=== PATIENT | female | born 1940 | race Caucasian/White ===

== ENCOUNTER 2017-11-14 09:08 | Day surgery (SDC) | payer MEDICARE ==
[~2017-11-14] VITALS: Ht 160 cm; Wt 79.4 kg
[~2017-11-14 09:08] MED LIST: CIPRO500 MG PO; Flagyl500 MG PO; LISI5 PO; LORA1 PO; NAPR220; NIFE30ER PO; THYR60 PO
[2017-11-14] MEDS ORDERED: NIFE30ER PO (10:08)
== END 2017-11-14 12:12 | disposition home or self-care (01) ==
LOC: ORSCSDS 09:08
PROVIDERS: Orthopaedic Surgery
PROC: 01N50ZZ Release Median Nerve, Open Approach (ICD-10-PCS; principal; 2017-11-14 10:30)
DX: G56.01 Carpal tunnel syndrome, right upper limb (principal); I10 Essential (primary) hypertension; E66.9 Obesity, unspecified; Z68.31 Body mass index [BMI] 31.0-31.9, adult; Z79.899 Other long term (current) drug therapy
CPT/HCPCS: J1885; J2250; J3010; J7120

== ENCOUNTER 2018-06-21 23:26 | Emergency (ER) | payer MEDICARE ==
[~2018-06-21] VITALS: Ht 162.6 cm; Wt 79.4 kg
== END 2018-06-22 03:47 | disposition home or self-care (01) ==
LOC: ER 23:26
DX: R04.0 Epistaxis (principal); Z88.0 Allergy status to penicillin; Z88.8 Allergy status to other drugs, medicaments and biological substances; Z88.2 Allergy status to sulfonamides; Z79.899 Other long term (current) drug therapy; Z87.891 Personal history of nicotine dependence
CPT/HCPCS: 99283

== ENCOUNTER 2018-07-26 06:13 | Inpatient (IN) | payer MEDICARE ==
[~2018-07-26] VITALS: Ht 162.6 cm; Wt 82.2 kg
[~2018-07-26 06:13] MED LIST changes: +DULO30 PO; +Norco 5-325 Ta1 EACH PO
--- NOTE | 2018-07-26 07:25 | NUR ---
PATIENT GAVE PERMISSION FOR ME TO CARE FOR HER TODAY 07/26/18. History, Chart, Medications and Allergies reviewed before start of procedure.Patient confirms NPO status and agrees with scheduled surgery. Patient reports completing Chlorhexadine shower X2 prior to admission to hospital.Surgical site prepped with 2% Chlorhexidine cloth wipe. Lungs clear T/O to Auscultation.
--- NOTE | 2018-07-26 07:39 | NUR ---
STUDENT NURSE ASSISTING WITH PREOPERATIVE CARE. AGREE WITH HER CHARTING AND CARE.
--- NOTE | 2018-07-26 11:23 | NUR ---
BLADDER SCAN REVEALED 325 CCs. STRAIGHT CATH PRODUCED 300 CCs OUTPUT.
--- NOTE | 2018-07-26 17:54 | NUR ---
SHIFT SUMMARY PT WAS DROWSY POST OP. BECAME NAUSEATED DURING THERAPY, AROMATHERAPY TX RELIEVED NAUSEA UNTIL PT AMBULATED TO BATHROOM TO ATTEMPT TO VOID WHEN NAUSEA RETURNED. PT UNSUCCESSFUL TO VOID, STRAIGHT CATH COMPLETED. PT RESTING IN BED, DECLINES MEAL FOR DINNER. SIPS OF FLUIDS AT THIS TIME.
[2018-07-27 05:52] LABS: BASOPHILS ABSOLUTE AUTO 0.01 K/mm3 (0.00-0.23); BASOPHILS PERCENT AUTO 0 % (0-2); EOSINOPHILS ABSOLUTE AUTO 0.04 K/mm3 (0.00-0.68); EOSINOPHILS PERCENT AUTO 1 % (0-6); Hematocrit 33.7 % (33.0-51.0); Hemoglobin 10.7 g/dL (11.5-16.0); IMMATURE GRAN ABSOLUTE AUTO 0.02 K/mm3 (0.00-0.10); IMMATURE GRAN PERCENT AUTO 0 % (0-1); LYMPHOCYTES ABSOLUTE AUTO 0.64 K/mm3 (0.84-5.20); LYMPHOCYTES PERCENT AUTO 9 % (21-46); MONOCYTES ABSOLUTE AUTO 0.64 K/mm3 (0.16-1.47); MONOCYTES PERCENT AUTO 9 % (4-13); Mean Corpuscular HGB 28.2 pg (26.0-34.0); Mean Corpuscular HGB Conc 31.8 g/dL (31.5-36.5); Mean Corpuscular Volume 89 fL (80-100); Mean Platelet Volume 10.8 fL (9.1-12.4); NEUTROPHILS ABSOLUTE AUTO 6.03 K/mm3 (1.96-9.15); NEUTROPHILS PERCENT AUTO 82 % (41-73); Platelet Count 166 K/mm3 (150-400); RDW Coefficient Variation 14.6 % (11.7-14.2); RDW Standard Deviation 47.2 fL (35.1-46.3); White Blood Cell Count 7.38 K/mm3 (4.00-11.30)
[2018-07-27 06:13] LABS: Anion Gap 6 mmol/L (6-16); Blood Urea Nitrogen 14 mg/dL (8-24); Bun/Creatinine Ratio 20.8 (12.0-20.0); CO2, Blood 25 mmol/L (21-32); Calcium, Blood 8.2 mg/dL (8.5-10.1); Chloride, Blood 106 mmol/L (98-108); Creatinine, Blood 0.67 mg/dL (0.40-1.00); Glomerular Filtration Rate >60 (60-); Glucose, Blood 110 mg/dL (70-99); Potassium, Blood 4.3 mmol/L (3.5-5.5); Sodium, Blood 137 mmol/L (136-145)
--- NOTE | 2018-07-27 07:38 | NUR ---
SHIFT SUMMARY PT IS POD 1 RIGHT SHAE AND GLUTEAL MEDIUS REPAIR. SHE WAS NAUSEATED LAST NIGHT AND REQUIRED MEDICATION AND JUST TOOK SIPS OF PEPSI OVERNIGHT. PT IS TTWB TO RIGHT SIDE AND ABLE TO FOLLOW PRECAUTIONS. HER BIGGEST CONCERN IS SHE WAS UNABLE TO VOID MORE THAN 75MLS AND HER BLADDER SCAN THIS MORNING WAS 472MLS. SHE HAS HX OF A PROLAPSED BLADDER AND DIFFICULTY VOIDING AFTER SURGERY WELL. PT HAS BEEN PAINFUL WITH MOVEMENT WELL, MEDICATED PER EMAR. REPORT PASSED TO ONCOMING SHIFT.
--- NOTE | 2018-07-27 07:50 | NUR ---
PT BLADDER SCANNED THIS AM ASSISTED TO BATHROOM TO VOID UNABLE TO GO PT IN CHAIR WILL PLACE CATH PT STATED THAT LAST SURG SHE NEEDED TO GO HOME WITH A CATH
--- NOTE | 2018-07-27 08:45 | NUR ---
[facility] CATH PLACED WILL CALL DR PAIGE
--- NOTE | 2018-07-27 09:22 | NUR ---
dr wilcox office called re pt unable to void ok to place fernandez with hosp to follow and pcp to manage postop
--- NOTE | 2018-07-27 10:39 | NUR ---
MESSAGE LEFT WITH DR RUSSELL FOR [facility] FOR [facility] CARE
[2018-07-27 11:16] LABS: Source, Urine Catheter
[2018-07-27 11:47] LABS: Bilirubin, Urine Neg (Neg); Blood, Urine Neg (Neg); Glucose Qualitative, Urine Neg (Neg); Ketones, Urine Neg (Neg); Leukocyte Esterase, Urine 1+ (Neg); Nitrite, Urine Neg (Neg); Protein, Urine 1+ (Neg); Specific Gravity, Urine 1.025 (1.003-1.022); Urobilinogen, Urine NORM (Normal)
[2018-07-27 11:48] LABS: Appearance, Urine Clear (Clear); Color, Urine Yellow (P-Yellow)
[2018-07-27 12:01] LABS: Bacteria Rare /hpf; Red Blood Cells, Urine 0-2 /hpf (0-2); Squamous Epithelial Cells Rare /hpf (Few)
[2018-07-27 12:02] LABS: Amorphous Mod (0-Heavy)
--- NOTE | 2018-07-27 14:01 | NUR ---
PT WALKED AGAIN TO THE DOORWAY WITH FWW BACK TO THE CHAIR PT STATED PAIN IS BETTER THEN EARLIER TODAY AMB
[2018-07-27] MEDS ORDERED: ENOX40I SC (16:48)
[2018-07-27] MEDS ORDERED: OXYC5 PO (16:49)
[2018-07-27] MEDS ORDERED: PROM25 PO (16:50)
--- NOTE | 2018-07-27 17:30 | NUR ---
discharge instructions reviewed with pt verbalized pt stated she filled her rx preop hh set per ss to call pt for first appointment to remove fernandez cath and monitor urinary ret dressing supplies given
== END 2018-07-27 17:45 | disposition home health service (06) | DRG 470 ==
LOC: SURS 06:13 → PRE IP 07:30 → SURS 11:56
PROVIDERS: ADMIT Orthopaedic Surgery
PROC: 0SR904A Replacement of Right Hip Joint with Ceramic on Polyethylene Synthetic Substitute, Uncemented, Open Approach (ICD-10-PCS; principal; 2018-07-26 07:30)
DX: M16.11 Unilateral primary osteoarthritis, right hip (principal); M79.7 Fibromyalgia; Z85.3 Personal history of malignant neoplasm of breast; I10 Essential (primary) hypertension; R33.9 Retention of urine, unspecified; Z87.891 Personal history of nicotine dependence
CPT/HCPCS: 36415; 72170; 80048; 81001; 83735; 85025; 87086; 88300; 97110; 97116; 97162; 97165; 97530; 97535; C1713; C1776; J1170; J1650; J1885; J2250; J2405; J2704; J3010; J3370; J7120

== ENCOUNTER → 2022-01-22 | Outpatient (CLI) | payer MEDICARE ==
[~2022-01-22] MED LIST changes: +ENOX40I SC; +OXYC5 PO; +PROM25 PO
== END | disposition home or self-care (01) ==
LOC: LAB SHORT 14:00 → LAB 14:00
DX: R30.0 Dysuria (principal)
CPT/HCPCS: 87077; 87086; 87186